=== PATIENT | male | born 1990 | race Caucasian/White ===

== ENCOUNTER 2024-03-27 09:59 | Emergency (ER) | payer OTHER ==
[~2024-03-27] VITALS: Ht 167.6 cm; Wt 94.3 kg
[2024-03-27 10:05] VITALS: BP 125/79; PULSE 78; RESP 22; TEMP 97.4; O2SAT 98
[2024-03-27 10:08] VITALS: O2SAT 98
[2024-03-27] MEDS ORDERED: AMOX1TAB8 PO (10:24)
== END 2024-03-27 10:31 | disposition home or self-care (01) ==
LOC: MED 09:59
DX: H92.01 Otalgia, right ear (principal); Z79.899 Other long term (current) drug therapy
CPT/HCPCS: 99283

== ENCOUNTER 2024-04-13 23:03 | Emergency (ER) | payer OTHER ==
[~2024-04-13] VITALS: Ht 167.6 cm; Wt 104.3 kg
[~2024-04-13 23:03] MED LIST: AMOX1TAB8 PO
[2024-04-13 23:40] VITALS: BP 138/84; PULSE 85; RESP 18; TEMP 98; O2SAT 98
[2024-04-14 00:06] LABS: APPEARANCE,URINE CLEAR (CLEAR); BILIRUBIN,URINE NEGATIVE (NEGATIVE); BLOOD, URINE NEGATIVE (NEGATIVE); COLOR,URINE YELLOW (YELLOW); LEUKOCYTE ESTERASE ,URINE NEGATIVE (NEGATIVE); NITRITE, URINE NEGATIVE (NEGATIVE); PROTEIN,URINE NEGATIVE (NEGATIVE); UGLUCOSE NEGATIVE (NEGATIVE); UROBILINOGEN,URINE 0.2 EU/dL (0.2 - 1)
[2024-04-14] MEDS: KETOROLAC 60 MG/2 ML VIAL IM ONE (01:55)
[2024-04-14] MEDS ORDERED: CYCL-711 PO (03:07)
[2024-04-14] MEDS ORDERED: IBUP-1842 PO (03:07)
[2024-04-14 03:15] VITALS: BP 128/80; PULSE 72; RESP 16; TEMP 97.9; O2SAT 96
== END 2024-04-14 03:14 | disposition home or self-care (01) ==
LOC: MED 23:03
DX: S39.012A Strain of muscle, fascia and tendon of lower back, initial encounter (principal); Z79.899 Other long term (current) drug therapy; X58.XXXA Exposure to other specified factors, initial encounter; Y92.89 Other specified places as the place of occurrence of the external cause; Y93.89 Activity, other specified; Y99.8 Other external cause status
CPT/HCPCS: 81003; 96372; 99283; J1885

== ENCOUNTER 2024-04-16 23:43 | Emergency (ER) | payer OTHER ==
[~2024-04-16] VITALS: Ht 167.6 cm; Wt 104.3 kg
[~2024-04-16 23:43] MED LIST changes: +CYCL-711 PO; +IBUP-1842 PO
[2024-04-16 23:52] VITALS: BP 138/74; PULSE 79; RESP 16; TEMP 97.2; O2SAT 99
[2024-04-17] MEDS ORDERED: DICL20GE TP (00:09)
[2024-04-17] MEDS: KETOROLAC 30 MG/ML VIAL IM ONE (00:22)
[2024-04-17] MEDS: LIDOCAINE 5% 1 EA PATCH TP ONE (00:22)
--- NOTE | 2024-04-17 00:29 | NUR ---
Patient discharged with v/s stable. Written and verbal after care instructions given and explained. Patient verbalized understanding. Ambulatory with steady gait. All questions addressed prior to discharge. Advised to follow up with PMD.
== END 2024-04-17 00:28 | disposition home or self-care (01) ==
LOC: MED 23:43
DX: M62.830 Muscle spasm of back (principal); Z79.899 Other long term (current) drug therapy
CPT/HCPCS: 96372; 99283; J1885